=== PATIENT | female | born 1955 | race Caucasian/White ===

== ENCOUNTER 2017-05-14 18:31 | Emergency (ER) | payer BC, OTHER ==
[2017-05-14 18:37] VITALS: BMI 27.3
--- NOTE | 2017-05-14 19:55 | PDOC ---
History of Present Illness - General History Source: Patient Exam Limitations: No Limitations - History of Present Illness Initial Comments: 05/14/17 21:14 The patient is a 61 year old female, with a significant past medical history of diverticulosis, melanosis coli, and hemorrhoids, who presents to the emergency department complaining of constipation and left lower quadrant abdominal pain for approximately 2 days. The patient reports she first noted stool changes on Wednesday. She describes her stool as thin in diameter, but denies any melena or hematochezia. She reports she has not had a bowel movement since this episode. She reports she normally has bowel movements every day. She reports associated left lower quadrant abdominal pain. Today the patient reports associated chills and fever. The patients Tmax prior to presentation was 100 F. The patient denies any nausea, vomiting, or diarrhea. She denies any dysuria , hematuria, frequency, or urgency. She denies any recent travel or sick contacts. Allergies: NSAIDS(Nonsteroidal Anti-inflammatories) Past Surgical History: Left sided bone spur Social History: Non smoker. No ETOH or drug use. <Eden Yin - Last Filed: 05/15/17 00:05> <Kelsy Lucio - Last Filed: 05/15/17 01:12> - General Chief Complaint: Pain, Acute Stated Complaint: CRAMPING Time Seen by Provider: 05/14/17 19:54 Past History <Eden Yin - Last Filed: 05/15/17 00:05> - Past Medical History GI Disorders: Yes (DIVERTICULOSIS, MELANOSIS COLI, HEMORRHOIDS) - Surgical History Orthopedic Surgery: Yes (REPAIR OF LT SIDED BONE SPUR) - Psycho/Social/Smoking Cessation Hx Anxiety: No Suicidal Ideation: No Smoking History: Never smoked Have you smoked in the past 12 months: No Number of Cigarettes Smoked Daily: 0 Hx Alcohol Use: No Drug/Substance Use Hx: No Substance Use Type: None <Kelsy Lucio - Last Filed: 05/15/17 01:12> - Past Medical History Allergies/Adverse Reactions: Allergies Allergy/AdvReac Type Severity Reaction Status Date / Time NSAIDS (Non-Steroidal AdvReac Mild Rash Verified 05/14/17 18:37 Anti-Inflamma Home Medications: Ambulatory Orders Estradiol [Minivelle] 1 each TD ASDIR 12/16/15 Levofloxacin [Levaquin -] 500 mg PO DAILY #7 tablet 05/15/17 Metronidazole [Flagyl -] 500 mg PO TID #21 tablet 05/15/17 Review of Systems - Review of Systems Able to Perform ROS?: Yes Comments:: 05/14/17 21:14 GENERAL/CONSTITUTIONAL: Yes: +fever, +chills. No weakness. HEAD, EYES, EARS, NOSE AND THROAT: No change in vision. No ear pain or discharge. No sore throat. CARDIOVASCULAR: No chest pain or shortness of breath. RESPIRATORY: No cough, wheezing, or hemoptysis. GASTROINTESTINAL: Yes: +left lower quadrant abdominal pain, +constipation, + decreased stool diameter. No nausea, vomiting, diarrhea. GENITOURINARY: No dysuria, frequency, or change in urination. MUSCULOSKELETAL: No joint or muscle swelling or pain. No neck or back pain. SKIN: No rash NEUROLOGIC: No headache, vertigo, loss of consciousness, or change in strength/ sensation. ENDOCRINE: No increased thirst. No abnormal weight change. HEMATOLOGIC/LYMPHATIC: No anemia, easy bleeding, or history of blood clots. ALLERGIC/IMMUNOLOGIC: No hives or skin allergy. <Eden Yin - Last Filed: 05/15/17 00:05> *Physical Exam - Vital Signs Last Vital Signs Temp Pulse Resp BP Pulse Ox 98.9 F 99 H 18 148/67 97 05/14/17 18:34 05/14/17 18:34 05/14/17 18:34 05/14/17 18:34 05/14/17 18:34 - Physical Exam Comments: 05/14/17 21:14 GENERAL: Awake, alert, and fully oriented, in no acute distress HEAD: No signs of trauma EYES: PERRLA, EOMI, sclera anicteric, conjunctiva clear ENT: Auricles normal inspection, hearing grossly normal, nares patent, oropharynx clear without exudates. Moist mucosa NECK: Normal ROM, supple, no lymphadenopathy, JVD, or masses LUNGS: Breath sounds equal, clear to auscultation bilaterally. No wheezes, and no crackles HEART: Regular rate and rhythm, normal S1 and S2, no murmurs, rubs or gallops ABDOMEN: +Left lower quadrant tenderness, but no guarding or rebound. Soft, normoactive bowel sounds. No masses EXTREMITIES: Normal range of motion, no edema. No clubbing or cyanosis. No cords , erythema, or tenderness NEUROLOGICAL: Cranial nerves II through XII grossly intact. Normal speech, normal gait SKIN: Warm, Dry, normal turgor, no rashes or lesions noted. <YinEden finney - Last Filed: 05/15/17 00:05> - Vital Signs Last Vital Signs Temp Pulse Resp BP Pulse Ox 98.9 F 99 H 18 148/67 97 05/14/17 18:34 05/14/17 18:34 05/14/17 18:34 05/14/17 18:34 05/14/17 18:34 <Kelsy Lucio - Last Filed: 05/15/17 01:12> ED Treatment Course - LABORATORY CBC & Chemistry Diagram: 05/14/17 21:39 05/14/17 21:39 - RADIOLOGY Radiograph Interpretation: 05/15/17 00:05 EXAM: CT Abdomen and Pelvis INTERPRETED BY: Dr. Cruz REVIEWED BY: Dr. Lucio IMPRESSION: Findings suspicious for mild acute diverticulitis of the sigmoid colon without abscess formation. EXAM: CXR INTERPRETED BY: Dr. Lucio IMPRESSION: No acute pathology. <Eden Yin - Last Filed: 05/15/17 00:05> - LABORATORY CBC & Chemistry Diagram: 05/14/17 21:39 05/14/17 21:39 <Kelsy Lucio - Last Filed: 05/15/17 01:12> Medical Decision Making - Medical Decision Making 05/14/17 23:41 pt comes with fever, chills, and LLQ pain. SHe has no hx of medical problems and no hx of abd surgeries in the past. She has no dysuria. She has no flank pain. She has no hematuria or bloody stools. She has no nausea and no vomiting. CT pending. Labs show elevated WBC count. 05/15/17 00:09 CT abd/pelvis consistent with diverticulitis. Pt wants to go home after 1 dose of IV abx. [place] and she wants to go home. She wants a referral to a local gastroenterologust as her GI doc Marely sierra moved [facility]. <Kelsy Lucio - Last Filed: 05/15/17 01:12> *DC/Admit/Observation/Transfer - Attestations Scribe Attestion: 05/14/17 21:15 Documentation prepared by Eden Yin, acting as medical record clerk for Kelys Lucio MD. <Eden Yin - Last Filed: 05/15/17 00:05> - Discharge Dispostion Admit: No <Kelsy Lucio - Last Filed: 05/15/17 01:12> Diagnosis at time of Disposition: Diverticulitis - Discharge Dispostion Disposition: HOME Condition at time of disposition: Stable - Prescriptions Prescriptions: Metronidazole [Flagyl -] 500 mg PO TID #21 tablet Levofloxacin [Levaquin -] 500 mg PO DAILY #7 tablet - Referrals Referrals: Francisco Vences [Primary Care Provider] - Javier Nguyen MD [Staff Physician] - - Patient Instructions Printed Discharge Instructions: DI for Diverticulitis
[2017-05-14] MEDS ORDERED: SODIUM CHLORIDE 0.9% 500 ML INFUS.BAG IV ONE (21:00)
[2017-05-14] MEDS ORDERED: POLYETHYLENE GLYCOL 3350 119 GM BTL PO ONE (21:00)
[2017-05-14 22:01] LABS: BASOPHIL 0.3 % (0-2.0); MCH 32.5 pg (25.7-33.7); MCHC 33.5 g/dl (32.0-36.0); MEAN CELL VOLUME 97.1 fl (80-96); MEAN PLT VOLUME 7.7 fl (7.5-11.1); NEUTROPHILS 87.1 % (42.8-82.8); PLATELET COUNT 213 K/MM3 (134-434); RDW 12.8 % (11.6-15.6); WHITE BLOOD COUNT 17.7 K/mm3 (4.0-10.0)
[2017-05-14] MEDS ORDERED: morphine CARPU-JECT 2 MG/1 ML DISP.SYRIN IVPUSH ONE (22:19)
[2017-05-14 22:32] LABS: ALBUMIN 3.2 g/dl (3.4-5.0); ALK PHOS 85 U/L (45-117); AMYLASE 26 U/L (25-115); ANION GAP 7 (8-16); BILIRUBIN,TOTAL 0.7 mg/dL (0.2-1.0); CO2 29 mmol/L (21-32); CREATININE 0.8 mg/dL (0.55-1.02); GLUCOSE,RANDOM 114 mg/dL (74-106); SGPT/ALT 40 U/L (12-78); TOT PROT 6.7 g/dl (6.4-8.2)
[2017-05-14 22:35] LABS: SGOT/AST 32 U/L (15-37)
[2017-05-14] MEDS ORDERED: ONDANSETRON 4 MG/2 ML VIAL IVPB ONE (22:46)
[2017-05-14] MEDS ORDERED: morphine CARPU-JECT 2 MG/1 ML DISP.SYRIN ONE (22:53)
[2017-05-14] MEDS ORDERED: ONDANSETRON 4 MG/2 ML VIAL ONE (22:55)
[2017-05-14 23:14] LABS: URINE APPEARANCE CLEAR; URINE BILIRUBIN NEGATIVE (NEGATIVE); URINE COLOR YELLOW; URINE GLUCOSE (UA) NEGATIVE (NEGATIVE); URINE KETONE 2+ (NEGATIVE); URINE LEUK ESTERASE NEGATIVE (NEGATIVE); URINE NITRITE NEGATIVE (NEGATIVE); URINE PROTEIN NEGATIVE (NEGATIVE); URINE UROBILINOGEN NEGATIVE E.U./dl (0.2-1.0)
[2017-05-14 23:15] LABS: URINE BLOOD 2+ (NEGATIVE)
[2017-05-14 23:16] LABS: URINE MUCUS RARE; URINE RBC 10 /hpf (0-3); URINE WBC 1 /hpf (3-5)
[2017-05-14] MEDS ORDERED: ACETAMINOPHEN INJECTION 100 ML IVPB ONE (23:37)
[2017-05-14] MEDS ORDERED: ACETAMINOPHEN 1000 MG/100 ML VIAL (NON FORMULARY) IVPB ONE (23:42)
[2017-05-14 23:48] VITALS: BP 138/64; PULSE 91; TEMP 101.6
[2017-05-15] MEDS ORDERED: DEXTROSE 5%-NORMAL SALINE 500 ML IV SCH (00:15)
[2017-05-15] MEDS ORDERED: METRONIDAZOLE 500 MG PREMIXED 100 ML IVPB ONE ×2 (00:24)
[2017-05-15] MEDS ORDERED: LEVOFLOXACIN 500 MG IVPB 100 ML IVPB ONE ×2 (01:24)
== END 2017-05-15 02:30 | disposition home or self-care (01) ==
LOC: JER 18:31
PROC: 3E03329 Introduction of Other Anti-infective into Peripheral Vein, Percutaneous Approach (ICD-10-PCS; principal; 2017-05-14)
PROC: 3E03329 Introduction of Other Anti-infective into Peripheral Vein, Percutaneous Approach (ICD-10-PCS; 2017-05-14)
PROC: 3E033NZ Introduction of Analgesics, Hypnotics, Sedatives into Peripheral Vein, Percutaneous Approach (ICD-10-PCS; 2017-05-14)
PROC: 3E033NZ Introduction of Analgesics, Hypnotics, Sedatives into Peripheral Vein, Percutaneous Approach (ICD-10-PCS; 2017-05-14)
PROC: 3E033GC Introduction of Other Therapeutic Substance into Peripheral Vein, Percutaneous Approach (ICD-10-PCS; 2017-05-14)
DX: K57.20 Diverticulitis of large intestine with perforation and abscess without bleeding (principal)
CPT/HCPCS: 36415; 71020-TC; 74176-TC; 80053; 81003; 81015; 82150; 83690; 85025; 99283-25; Q9967